=== PATIENT | female | born 1995 | race Hispanic/Latino ===

== ENCOUNTER 2020-02-13 07:05 | Emergency (ER) | payer OTHER, SELFPAY ==
[2020-02-13] MEDS ORDERED: NA CHLORIDE 0.9% 1,000 ML ONE ×2 (07:37→09:24)
[2020-02-13 07:38] LABS: Absolute Lymphocytes (CBC) 1.8 K/uL (0.7-4.9); Basophils % 0.5 % (0-1.3); Hematocrit 47.4 % (36.0-45.0); Lymphocytes % 11.3 % (15.3-44.8); MPV 9.9 fL (7.6-11.3); RBC Red Blood Cell Count 4.97 M/uL (3.86-4.86)
[2020-02-13 07:43] LABS: Protime INR 1.31
[2020-02-13 08:02] LABS: Urine Blood TRACE (NEG); Urine Glucose NEGATIVE (NEG); Urine Protein 1+ (NEG); Urine pH 6.5 (5.0-7.0)
[2020-02-13 08:11] LABS: ALT/SGPT 56 U/L (12-78); AST/SGOT 54 U/L (15-37); Albumin 3.4 g/dL (3.4-5.0); Alkaline Phosphatase 87 U/L (45-117); BUN Blood Urea Nitrogen 3 mg/dL (7-18); Barbiturates NEGATIVE (NEGATIVE); Benzodiazepines NEGATIVE (NEGATIVE); Bicarbonate 23 mmol/L (21-32); Bilirubin Direct 0.2 mg/dL (0-0.2); Bilirubin Total 0.5 mg/dL (0.2-1.0); Cocaine NEGATIVE (NEGATIVE); Glucose Level 178 mg/dL (74-106); METHAMPHETAM NEGATIVE (NEGATIVE); Methadone NEGATIVE (NEGATIVE); Opiates NEGATIVE (NEGATIVE); Phencyclidine NEGATIVE (NEGATIVE); Potassium 3.1 mmol/L (3.5-5.1); Protein, Total 7.2 g/dL (6.4-8.2); Sodium Level 143 mmol/L (136-145); THC Cannibis POSITIVE (NEGATIVE)
--- NOTE | 2020-02-13 09:39 | EDPHYS ---
Physician Documentation [facility] Name: Sadaf Lawson Age: 24 yrs Sex: Female : 1995 Arrival Date: 02/13/2020 Time: 07:09 Bed 2 Private MD: ED Physician Oz Acevedo HPI: 02/12 07:17 This 24 yrs old Female presents to ER via Unassigned with complaints of rn possible drug overdose. 07:17 The patient presents to the emergency department with a possible overdose. Context: rn Method: the patient has a confirmed or suspected ingestion, Time: this morning, 2 hour(s) ago. 07:20 Associated signs and symptoms: Pertinent positives: decreased level of consciousness, rn Pertinent negatives: auditory hallucinations, incontinence, loss of consciousness, visual hallucinations. Severity of symptoms: At their worst the symptoms were moderate in the emergency department the symptoms have improved. It is unknown whether or not the patient has had similar symptoms in the past. EMS reports friends called out for possible drug overdose, was breathing about 8x/minute, given narcan 1mg, woke up and now talking on phone. Pt admits to taking 2 "oksana" at 0500, recreational, denies suicidal or homicidal thoughts. Denies recent illness or pain. . 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 - Social history:: Smoking status: Patient reports the use of cigarette tobacco products, denies chronic smoking, but will smoke occasionally, Patient uses street drugs, marijuana. - Family history:: not pertinent. - Hospitalizations: : No recent hospitalization is reported. ROS: 07:20 Constitutional: Negative for fever, chills, and weight loss, Eyes: Negative for injury, rn pain, redness, and discharge, Neck: Negative for injury, pain, and swelling, Cardiovascular: Negative for chest pain, palpitations, and edema, Respiratory: Negative for shortness of breath, cough, wheezing, and pleuritic chest pain, Abdomen/GI: Negative for abdominal pain, nausea, vomiting, diarrhea, and constipation, Back: Negative for injury and pain, : Negative for injury, bleeding, discharge, and swelling, MS/Extremity: Negative for injury and deformity, Skin: Negative for injury, rash, and discoloration, Neuro: Negative for headache, weakness, numbness, tingling, and seizure, Psych: Negative for depression, anxiety, suicide ideation, homicidal ideation, and hallucinations. Exam: 07:20 Constitutional: This is a well developed, well nourished patient who is awake, alert, rn and in no acute distress. Ambulatory to bathroom, using facetime with significant other. Head/Face: Normocephalic, atraumatic. Eyes: Pupils equal round and reactive to light, extra-ocular motions intact. Neck: Trachea midline, no thyromegaly or masses palpated, and no cervical lymphadenopathy. Supple, full range of motion without nuchal rigidity, or vertebral point tenderness. No Meningismus. Cardiovascular: Regular rate and rhythm. No pulse deficits. Respiratory: No increased work of breathing, no retractions or nasal flaring. Abdomen/GI: soft, non-tender Skin: Warm, dry MS/ Extremity: Pulses equal, no cyanosis. Neuro: Awake and alert, GCS 15, oriented to person, place, time, and situation. Cranial nerves II-XII grossly intact. Motor strength 5/5 in all extremities. Sensory grossly intact. Cerebellar exam normal. Normal gait. 08:22 ECG was reviewed by the Attending Physician. rn Vital Signs: 07:30 BP 107 / 72; Pulse 95; Resp 16; Temp 97.8(TE); Pulse Ox 96% on R/A; Weight 86.18 kg (R);ae4 08:17 BP 103 / 75; Pulse 89; Resp 15; Pulse Ox 94% on R/A; ae4 09:28 BP 103 / 74; Pulse 90; Resp 16; Pulse Ox 97% on R/A; ae4 MDM: 07:10 Patient medically screened. rn 09:13 ED course: Pt on phone bragging to friends and laughing that she "overdosed and had rn trouble waking up". Ambulatory to bathroom. Still denies co-ingestion/suicidal ideation/homicidal ideation.. 09:38 Differential diagnosis:. Data reviewed: vital signs, nurses notes, lab test result(s), rn EKG, and as a result, I will discharge patient. Counseling: I had a detailed discussion with the patient and/or guardian regarding: the historical points, exam findings, and any diagnostic results supporting the discharge/admit diagnosis, lab results, the need for outpatient follow up, to return to the emergency department if symptoms worsen or persist or if there are any questions or concerns that arise at home. Response to treatment: the patient's symptoms have markedly improved after treatment, the patient's condition has returned to base line, the patient is now symptom free, and as a result, I will discharge patient. Special discussion: I discussed with the patient/guardian in detail that at this point there is no indication for admission to the hospital. It is understood, however, that if the symptoms persist or worsen the patient needs to return immediately for re-evaluation. 09:38 ED course: Counseled regarding drug use and sedatives. . 02/12 07:12 Order name: Acetaminophen; Complete Time: 08:25 02/12 07:12 Order name: Basic Metabolic Panel; Complete Time: 08: 02/12 07:12 Order name: CBC with Diff; Complete Time: 08: 02/12 07:12 Order name: ETOH Level; Complete Time: 08: 02/12 07:12 Order name: Hepatic Function; Complete Time: 08: 02/12 07:12 Order name: PT-INR; Complete Time: 08: 02/12 07:12 Order name: Urine Test (obtain specimen); Complete Time: 07:29 02/12 07:12 Order name: Salicylate; Complete Time: 08:47 02/12 07:12 Order name: Urine Drug Screen; Complete Time: 08:25 02/12 07:12 Order name: EKG; Complete Time: 07:13 02/12 07:30 Order name: Urine Dipstick--Ancillary (enter results); Complete Time: 08:25 [facility] 02/12 07:31 Order name: Urine --Ancillary (enter results); Complete Time: 08:25 [facility] 02/12 07:12 Order name: EKG - Nurse/Tech; Complete Time: 08:16 02/12 07:12 Order name: IV Saline Lock; Complete Time: 07:29 02/12 07:12 Order name: Labs collected and sent; Complete Time: 07: 02/12 07:12 Order name: Urine Dipstick-Ancillary (obtain specimen); Complete Time: 07:29 rn EC:22 Rate is 96 beats/min. Rhythm is regular. QRS [place] is Normal. OK interval is normal. QRS rn interval is normal. QT interval is normal. No Q waves. T waves are Inverted in leads V3, V4, V5. No ST changes noted. Clinical impression: NSR w/ Non-specific ST/T Changes. Interpreted by me. Reviewed by me. Administered Medications: 07:30 Drug: NS 0.9% 1000 ml Route: IV; Rate: 1000 ml; Site: left antecubital; ae4 10:20 Follow up: IV Status: Completed infusion; IV Intake: 1000ml ae4 09:14 Drug: NS 0.9% 1000 ml Route: IV; Rate: 1000 ml; Site: left antecubital; ae4 10:20 Follow up: IV Status: Completed infusion; IV Intake: 1000ml ae4 Disposition: 02/13/20 09:39 Discharged to Home. Impression: Alcohol abuse with intoxication, Sedative, hypnotic or anxiolytic abuse with intoxication. - Condition is Stable. - Discharge Instructions: Alcohol Intoxication, Drug Overdose. - Medication Reconciliation Form, Thank You Letter, Antibiotic Education, Prescription Opioid Use form. - Follow up: Private Physician; When: As needed; Reason: Recheck today's complaints, Re-evaluation by your physician. - Problem is new. - Symptoms have improved. Signatures: Dispatcher [employer] EDMS Oz Acevedo MD MD rn Elliott, Andrea, RN RN ae4 Corrections: (The following items were deleted from the chart) 10:15 09:39 02/13/2020 09:39 Discharged to Home. Impression: Alcohol abuse with intoxication; ae4 Sedative, hypnotic or anxiolytic abuse with intoxication. Condition is Stable. Forms are Medication Reconciliation Form, Thank You Letter, Antibiotic Education, Prescription Opioid Use. Follow up: Private Physician; When: As needed; Reason: Recheck today's complaints, Re-evaluation by your physician. Problem is new. Symptoms have improved. rn
--- NOTE | 2020-02-13 09:39 | ER ---
Nurse's Notes [facility] Name: Sadaf Lawson Age: 24 yrs Sex: Female : 1995 Arrival Date: 02/13/2020 Time: 07:09 Bed 2 Private MD: Diagnosis: Alcohol abuse with intoxication;Sedative, hypnotic or anxiolytic abuse with intoxication Presentation: 02/12 07:32 Chief complaint: Patient states: Patient states she took "some pills", "oksana" "2 pills" ae4 and then she awoke to EMS in her home. Coronavirus screen: Client denies travel out of the [place] in the last 14 days. Ebola Screen: Patient negative for fever greater than or equal to 101.5 degrees Fahrenheit, and additional compatible Ebola Virus Disease symptoms Patient denies exposure to infectious person. Patient denies travel to an Ebola-affected area in the 21 days before illness onset. Initial Sepsis Screen: Does the patient meet any 2 criteria? No. Patient's initial sepsis screen is negative. 07:32 Acuity: TYSHAWN 3 ae4 07:32 Method Of Arrival: EMS: [facility] ae4 10:19 Initial Sepsis Screen: Does the patient have a suspected source of infection? No. ae4 Patient's initial sepsis screen is negative. Risk Assessment: Do you want to hurt yourself or someone else? Patient reports no desire to harm self or others. Onset of symptoms was February 13, 2020 at 06:30. Care prior to arrival: Medication(s) given: 1mg Narcan administered by [facility]. 10:20 Onset of symptoms was February 13, 2020 at 06:30. ae4 Triage Assessment: 07:40 General: Behavior is calm, cooperative, quiet. Pain: Denies pain. EENT: No signs and/or ae4 symptoms were reported regarding the EENT system. Neuro: Level of Consciousness is awake, alert, obeys commands, Oriented to person, place, situation. Cardiovascular: Heart tones S1 S2 present Patient's skin is warm and dry. Respiratory: Airway is patent Respiratory effort is even, unlabored, relaxed, Respiratory pattern is regular. GI: No signs and/or symptoms were reported involving the gastrointestinal system. Abdomen is round Reports nausea. : No signs and/or symptoms were reported regarding the genitourinary system. Urine is clear. Derm: Skin is pale. Musculoskeletal: No signs and/or symptoms reported regarding the musculoskeletal system. 10:14 General: Appears in no apparent distress. 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 - Social history:: Smoking status: Patient reports the use of cigarette tobacco products, denies chronic smoking, but will smoke occasionally, Patient uses street drugs, marijuana. - Family history:: not pertinent. - Hospitalizations: : No recent hospitalization is reported. Screenin:31 Abuse screen: Denies threats or abuse. Denies injuries from another. Nutritional ae4 screening: No deficits noted. 10:20 Tuberculosis screening: No symptoms or risk factors identified. Fall Risk No fall in ae4 past 12 months (0 pts). No secondary diagnosis (0 pts). IV access (20 points). Ambulatory Aid- None/Bed Rest/Nurse Assist (0 pts). Gait- Normal/Bed Rest/Wheelchair (0 pts) Mental Status- Overestimates/Forgets Limitations (15 pts.). Assessment: 08:18 Reassessment: Patient and/or family updated on plan of care and expected duration. Pain ae4 level reassessed. Patient denies pain at this time. Patient states feeling better. 09:14 Reassessment: Patient appears in no apparent distress at this time. Patient and/or ae4 family updated on plan of care and expected duration. Pain level reassessed. Patient states feeling better. Pt transported to restroom via wheelchair. . Vital Signs: 07:30 BP 107 / 72; Pulse 95; Resp 16; Temp 97.8(TE); Pulse Ox 96% on R/A; Weight 86.18 kg (R);ae4 08:17 BP 103 / 75; Pulse 89; Resp 15; Pulse Ox 94% on R/A; ae4 09:28 BP 103 / 74; Pulse 90; Resp 16; Pulse Ox 97% on R/A; ae4 ED Course: 07:09 Patient arrived in ED. em1 07:10 Oz Acevedo MD is Attending Physician. rn 07:11 Sarah, Bridger, RN is Primary Nurse. em 07:30 Arm band placed on right wrist. ae4 07:33 Maintain EMS IV. Dressing intact. Good blood return noted. Site clean \\T\\ dry. Gauge \\T\\ ae 4 site: 18 G left AC. IV discontinued, intact, bleeding controlled, No redness/swelling at site. Pressure dressing applied. 07:35 Triage completed. ae4 07:36 Placed in gown. Bed in low position. Call light in reach. Side rails up X2. Cardiac ae4 monitor on. Pulse ox on. NIBP on. Warm blanket given. 10:16 No provider procedures requiring assistance completed. ae4 Administered Medications: 07:30 Drug: NS 0.9% 1000 ml Route: IV; Rate: 1000 ml; Site: left antecubital; ae4 10:20 Follow up: IV Status: Completed infusion; IV Intake: 1000ml ae4 09:14 Drug: NS 0.9% 1000 ml Route: IV; Rate: 1000 ml; Site: left antecubital; ae4 10:20 Follow up: IV Status: Completed infusion; IV Intake: 1000ml ae4 Intake: 10:20 IV: 1000ml; Total: 1000ml. ae4 10:20 IV: 1000ml; Total: 2000ml. ae4 Outcome: 09:39 Discharge ordered by . rn 10:15 Patient left the ED. ae4 10:18 Discharged to home via wheelchair, Patient states friend is in the parking lot waiting ae4 to transport her home. 10:18 Condition: stable 10:18 Discharge instructions given to patient, Instructed on discharge instructions, follow up and referral plans. Demonstrated understanding of instructions. Signatures: Bridger Sarah RN RN em Oz Acevedo MD MD rn Martinez, Eric em1 Carson Callaway RN RN ae4
[2020-02-13 10:24] VITALS: TEMP 97.8
[2020-02-13 10:27] VITALS: BP 103/74; O2SAT 97
== END 2020-02-13 10:15 | disposition home or self-care (01) ==
LOC: ER 07:05
DX: F13.129 Sedative, hypnotic or anxiolytic abuse with intoxication, unspecified (principal); F17.210 Nicotine dependence, cigarettes, uncomplicated
CPT/HCPCS: 36415; 80048; 80076; 80307; 80320; 80329; 81003; 81025; 85025; 85610; 93005; 96360; 96361; 99284; J7030

== ENCOUNTER 2023-10-21 21:54 | Emergency (ER) | payer OTHER ==
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
[2023-10-22 00:44] VITALS: BP 132/87; TEMP 97.8; O2SAT 100
--- NOTE | 2023-10-22 15:47 | RAD REPORT ---
EXAM DESCRIPTION: XR Right Forearm, 2 Views CLINICAL HISTORY: The patient is 27 years old and is Female; PAIN TECHNIQUE: Frontal and lateral views of the right forearm. COMPARISON: No relevant prior studies available. FINDINGS: BONES/JOINTS: Unremarkable. No acute fracture. No dislocation. SOFT TISSUES: Diffuse soft tissue swelling of the forearm is noted. IMPRESSION: Diffuse soft tissue swelling of the forearm is noted. No underlying acute bony abnorma lity. Electronically signed by: Shweta Meredith MD 10/21/2023 11:42 PM CDT Due to temporary technical issues with the PACS/Fluency reporting system, reports are being signed by the in house radiologist without review as a courtesy to ensure prompt reporting. The interpreting r adiologist is fully responsible for the content of the report.
== END 2023-10-22 00:33 | disposition home or self-care (01) ==
LOC: ER 21:54
DX: S50.11XA Contusion of right forearm, initial encounter (principal)
CPT/HCPCS: 99282